=== PATIENT | female | born 1970 | race Two or more races ===

== ENCOUNTER 2018-04-19 04:03 | Emergency (ER) | payer SELFPAY ==
[~2018-04-19] VITALS: Ht 154.9 cm; Wt 72.6 kg
[2018-04-19 04:03] VITALS: BP 132/72
--- NOTE | 2018-04-19 04:03 | NUR ---
ED Nurse Note: Pt was BIBA from home, c/o short of breath, coughing for 3 days and lower back pain 07/19. Pt is A/o x 4. Vital signs stable at this time, waitng for orders.
[2018-04-19 04:06] VITALS: BP 117/84
--- NOTE | 2018-04-19 04:10 | Emergency Room Report ---
History of Present Illness General Chief Complaint: Upper Respiratory Illness Source: Patient Present Illness HPI Is a 47-year-old female with history of asthma. She did infrequent attacks. She presents with chief complaint of shortness of breath, cough, upper back pain. Onset for last 3 days. Has runny nose congestion. Worse with exertion. Unable to lay flat. Couldn't breathe tonight so she called 911. No nausea or vomiting. No fever or chills. Similar symptom in the past. Does not have any inhaler. Allergies: Coded Allergies: No Known Allergies (Unverified , 04/19/18) Patient History Past Medical History: see triage record, old chart reviewed, asthma Past Surgical History: other Pertinent Family History: none Social History: Denies: smoking Now: No Immunizations: other Reviewed Nursing Documentation: PMH: Agreed; PSxH: Agreed Review of Systems Eye: Denies: eye pain, blurred vision ENT: Denies: ear pain, nose congestion, throat swelling Respiratory: Reports: cough, shortness of breath Cardiovascular: Denies: chest pain, palpitations Gastrointestinal: Denies: abdominal pain, diarrhea, nausea, vomiting Musculoskeletal: Reports: back pain; Denies: joint pain Skin: Denies: rash Neurological: Denies: headache, numbness Endocrine: Denies: increased thirst, increased urine Hematologic/Lymphatic: Denies: easy bruising All Other Systems: negative except mentioned in HPI Physical Exam vitals unremarkable Sp02 EP Interpretation: reviewed, normal General Appearance: well appearing, no apparent distress, alert Head: normocephalic, atraumatic Eyes: bilateral eye PERRL, bilateral eye EOMI ENT: hearing grossly normal, normal pharynx Neck: full range of motion, supple, no meningismus Respiratory: chest non-tender, accessory muscle use, wheezing Cardiovascular #1: regular rate, rhythm, no murmur Gastrointestinal: normal bowel sounds, non tender, no mass, no organomegaly, no bruit, non-distended Musculoskeletal: back normal, gait/station normal, normal range of motion Psychiatric: mood/affect normal Skin: warm/dry Medical Decision Making Diagnostic Impression: Primary Impression: Asthma with exacerbation Qualified Codes: J45.21 - Mild intermittent asthma with (acute) exacerbation Additional Impression: Strain of thoracic back region ER Course patient presents with asthma exacerbation. Better after breathing treatment. Her back pain secondary to muscle strain from coughing. No evidence of ACS, PE , dissection to name a few. We'll discharge home. Chest X-Ray Diagnostic Results Chest X-Ray Diagnostic Results : Chest X-Ray Ordered: Yes # of Views/Limited/Complete: 1 View Indication: Shortness of Breath EP Interpretation: Yes Interpretation: no consolidation, no effusion, no pneumothorax, no acute cardiopulmonary disease Impression: No acute disease Electronically Signed by: Pedro Troy MD Status: improved Disposition: HOME, SELF-CARE Condition: Stable Scripts Prednisone* (PREDNISONE*) 20 Mg Tablet 40 MG ORAL DAILY, #8 TAB Prov: Pedro Troy MD 04/19/18 Ibuprofen* (MOTRIN*) 600 Mg Tablet 600 MG ORAL THREE TIMES A DAY, #30 TAB 0 Refills Prov: Pedro Troy MD 04/19/18 Albuterol Sulfate* (ALBUTEROL SULFATE MDI*) 8.5 Gm Hfa.aer.ad 2 PUFF INH Q4H PRN for cough/wheezing, #1 EA 0 Refills Prov: Pedro Troy MD 04/19/18 Additional Instructions: Follow-up with your doctor in 7 days. Return if symptom worsen. Pedro Troy MD Apr 19, 2018 04:10
[2018-04-19] MEDS ORDERED: Albuterol ud Inhalation HHN ONE (04:15)
[2018-04-19] MEDS ORDERED: Ipratropium 0.02% Inh Soln 2.5ml UD HHN ONE (04:15)
--- NOTE | 2018-04-19 04:20 | NUR ---
ED Nurse Note: Meds given as ordered. Breathing treatment given at bed side by RT.
--- NOTE | 2018-04-19 04:23 | NUR ---
ED Nurse Note: Chest X-ray done at bed side.
[2018-04-19] MEDS ORDERED: ALBUTEROL SULF8.5 GM INH (04:50)
[2018-04-19] MEDS ORDERED: PREDNISONE20 MG ORAL (04:50)
[2018-04-19] MEDS ORDERED: IBUPROFEN600 MG ORAL (04:50)
--- NOTE | 2018-04-19 05:02 | NUR ---
ER DISCHARGE NOTE: Patient is cleared to be discharged per Dr. Troy. X-ray done, Meds given, breathing treatment given. Pt is A/O x4 on room air with stable vital signs. Pt was given dc instructions and able to verbalize understanding. Pt's ID band removed. Pt is able to ambulate with steady gait and took all belongings.
--- NOTE | 2018-04-19 10:35 | Diagnostic Imaging Report ---
Indication: Shortness of breath Technique: One view of the chest Comparison: none Findings: Lungs and pleural spaces are clear. Heart size is normal Impression: No acute process
== END 2018-04-19 05:02 | disposition home or self-care (01) ==
LOC: EDBD 04:03 → EMR 04:32
DX: J45.901 Unspecified asthma with (acute) exacerbation (principal); S29.012A Strain of muscle and tendon of back wall of thorax, initial encounter; X58.XXXA Exposure to other specified factors, initial encounter; Y92.9 Unspecified place or not applicable
CPT/HCPCS: 71045; 94640; 94664; 99284; J7512